=== PATIENT | male | born 1990 | race Caucasian/White ===

== ENCOUNTER 2017-02-27 09:44 | Emergency (ER) | payer OTHER, BC ==
--- NOTE | ~2017-02-27 | CT71 ---
[facility] A Service of [facility] RADIOLOGY TEXT RESULTS PATIENT: JOSEFA RICHARDS LOCATION: SED : [birth year] UNIT #: [id number] AGE: [address]: MEG JOHNSON SEX: M ORDER DR: [id number] [place] [address] [id number] E MR#: [id number] Acc #: [id number] NAME: JOSEFA RICHARDS : 1990 SEX: M STUDY DATE/TIME: 02/27/2017 11:03 UNIT: SED ROOM: STUDY DESCRIPTION: CT Head Wo Contrast Attending Physician: Meg Johnson Aprn Ordering Physician: Meg Johnson Aprn Primary Care Physician: Primary Care Physician No MEDICAL IMAGING REPORT This report is preliminary unless electronic signature is present. EXAM CT of the head without contrast INDICATION Headache starting today. Patient also reports vomiting and light sensitivity. He does have a history of migraine. TECHNIQUE Axial CT images were obtained from the vertex of the skull through the skull base. No intravenous contrast material was administered. This CT examination was performed with one or more of the following radiation dose reduction techniques: automatic exposure control, adjustment of mA and/or kV according to patient size, and iterative reconstruction. FINDINGS Axial noncontrast images were obtained from the skull base to the vertex. Ventricular size and configuration are normal. There is no evidence of acute infarct or hemorrhage. There are no extraaxial fluid collections. No mass lesion or mass effect is seen. There are no skull fractures. IMPRESSION Normal noncontrast head CT. Dictated by... Aniyah Hooper M.D. THIS IS AN ELECTRONICALLY VERIFIED REPORT Aniyah Hooper M.D. at 02/27/2017 4:50 PM AFF/mjs [facility] A Service [facility] RADIOLOGY TEXT RESULTS PATIENT: JOSEFA RICHARDS LOCATION: SED : 91 UNIT #: [id number] AGE: [address]: MEG JOHNSON SEX: M ORDER DR: TD: 02/27/2017 14:06 JOB #: [id number] MEDICAL IMAGING REPORT Page 1 of 1
[~2017-02-27 09:44] MED LIST: NO MEDICATIONS
== END 2017-02-27 12:54 | disposition home or self-care (01) ==
LOC: SED 09:44
DX: R51 Headache (principal); F17.210 Nicotine dependence, cigarettes, uncomplicated
CPT/HCPCS: 36415; 70450; 96365; 96374; 96375; 99284; J0780; J1200; J1885; J2765

== ENCOUNTER 2017-03-02 23:43 | Emergency (ER) | payer OTHER, BC ==
[2017-03-03 00:45] LABS: AMPHETAMINE NEG (NEG); BARBITURATES NEG (NEG); BENZODIAZEPINES NEG (NEG); COCAINE NEG (NEG); MARIJUANA POS (NEG); OPIATES NEG (NEG); TRICYCLIC ANTIDEPRESSANTS NEG (NEG); U METHADONE NEG (NEG)
== END 2017-03-03 03:12 | disposition home or self-care (01) ==
LOC: SED 23:43
PROVIDERS: Physician Assistant
DX: S51.812A Laceration without foreign body of left forearm, initial encounter (principal); F17.200 Nicotine dependence, unspecified, uncomplicated; G43.909 Migraine, unspecified, not intractable, without status migrainosus; F32.9 Major depressive disorder, single episode, unspecified; Z23 Encounter for immunization; X83.8XXA Intentional self-harm by other specified means, initial encounter; Y92.009 Unspecified place in unspecified non-institutional (private) residence as the place of occurrence of the external cause
CPT/HCPCS: 12002; 80307; 90471; 90715; 99283; G0480